=== PATIENT | male | born 1995 | race Caucasian/White ===

== ENCOUNTER 2017-09-01 23:54 | Emergency (ER) | payer OTHER ==
[~2017-09-01] VITALS: Ht 175.3 cm; Wt 68.0 kg
[~2017-09-01 23:54] MED LIST: BACTRIM DS TAB1 EACH PO; LORTABELXR PO
[2017-09-02] MEDS ORDERED: VENTOLIN HFA 1818 GM INH (01:10)
[2017-09-02] MEDS ORDERED: PEPCID20 MG PO (01:10)
[2017-09-02] MEDS ORDERED: PREDNISONE 10 M10 MG PO (01:10)
[2017-09-02 01:16] VITALS: BP 110/64
== END 2017-09-02 01:17 | disposition home or self-care (01) ==
LOC: M.ERS 23:54
DX: L50.9 Urticaria, unspecified (principal); Z88.1 Allergy status to other antibiotic agents